=== PATIENT | female | born 1990 | race Caucasian/White ===

== ENCOUNTER → 2017-10-09 14:09 | Outpatient (CLI) | payer BC, SELFPAY ==
--- NOTE | 2017-10-09 | DI.RAD.S_ITS ---
PROCEDURE: XR LUMBAR SPINE 2-3V INDICATIONS: TAILBONE INJURY TECHNIQUE: 3 views of the lumbar spine were acquired. COMPARISON: [facility], CR, XR SACRUM COCCYX MIN 2V, 10/09/2017, 13:53. FINDINGS: Bones: 5 [id number] vertebrae are present. There is normal bony alignment. No vertebral body compression fractures. No suspicious bony lesions. Soft tissues: Overlying bowel gas pattern is normal. No suspicious soft tissue calcifications. IMPRESSION: Normal lumbar spine radiograph. Dictated by: Edmund Crawford M.D. on 10/09/2017 at 15:47 Approved by: Edmund Crawford M.D. on 10/09/2017 at 15:49
--- NOTE | 2017-10-09 | DI.RAD.S_ITS ---
PROCEDURE: XR SACRUM COCCYX MIN 2V INDICATIONS: TAILBONE INJURY TECHNIQUE: 3 views of the sacrum and coccyx acquired. COMPARISON: [facility], CR, XR LUMBAR SPINE 2-3V, 10/09/2017, 13:53. FINDINGS: Bones: No fractures or dislocations. No suspicious bony lesions. Soft tissues: Visualized bowel gas pattern is normal. No suspicious soft tissue densities. IMPRESSION: No fractures. If clinical symptoms persist or clinical suspicion for pathology is high, a repeat examination in 7-10 days is suggested for further evaluation. Dictated by: Edmund Crawford M.D. on 10/09/2017 at 15:49 Approved by: Edmund Crawford M.D. on 10/09/2017 at 15:49
== END ==
PROVIDERS: PCP Family Medicine; Visit Provider Family Medicine
DX: S39.92XA Unspecified injury of lower back, initial encounter (principal)
CPT/HCPCS: 72100; 72220

== ENCOUNTER → 2018-01-22 16:47 | Outpatient (CLI) | payer BC, SELFPAY ==
--- NOTE | 2018-01-22 | DI.MRI.S_ITS ---
PROCEDURE: MR LUMBAR SPINE WO CON INDICATIONS: POLYNEUROPATHY TECHNIQUE: Noncontrast sagittal T1 spin echo and T2 fast echo, sagittal STIR, axial T1 and T2 fast spin echo through the lumbar spine. In cases with scoliosis, additional coronal T2 fast spin echo may be performed. COMPARISON: [facility], CR, XR LUMBAR SPINE 2-3V, 10/09/2017, 13:53. FINDINGS: Image quality: Excellent. Alignment and Curvature: There is normal bony alignment. Bone Marrow: Marrow is of normal overall signal. No acute vertebral body compression fractures. Spinal Cord: Conus medullaris terminates at the L1 level. Visualized cord demonstrates normal signal and size. Paraspinous Soft Tissues: No paravertebral masses. L1-L2: Normal appearance. L2-L3: Normal appearance. L3-L4: Normal appearance. L4-L5: Normal appearance. L5-S1: Normal appearance except for mild degenerative disc height reduction and slight disc desiccation at L5-S1 where a slight posterior transverse broad-based disc bulge is present, best seen at the midline on the sagittal views, which does not produce significant spinal or foraminal stenosis. IMPRESSION: Minimal degenerative disc height reduction and disc desiccation with a small posterior broad-based midline disc bulge at L5-S1, but without associated spinal or foraminal stenosis. No mass lesion or demyelination disorder is identified. Dictated by: Patrick Matthews M.D. on 01/23/2018 at 8:14 Approved by: Patrick Matthews M.D. on 01/23/2018 at 8:15
--- NOTE | 2018-01-22 16:56 | DI.MRI.S_ITS ---
PROCEDURE: MR HEAD/BRAIN WO CON INDICATIONS: POLYNEUROPATHY TECHNIQUE: Noncontrast axial T1 spin echo, axial T2 fast spin echo, sagittal and axial FLAIR, coronal T2 fast spin echo, axial gradient echo, axial diffusion and ADC through the brain. COMPARISON: None. FINDINGS: Image quality: Excellent. CSF Spaces: Basal cisterns are patent. No extra-axial fluid collections. Ventricles are normal in size and shape. Brain: No intracranial masses or hemorrhage. Walker/white matter interface is normal. Brainstem appears normal. Diffusion-weighted images demonstrate no acute ischemic insult. No chronic ischemic insults. Normal intravascular flow voids are present. Skull and face: Calvarium has normal marrow signal. Orbits appear normal. Sinuses: Sinuses and mastoids are clear. IMPRESSION: Normal for age, source of current symptoms is not seen. Dictated by: Patrick Matthews M.D. on 01/23/2018 at 8:04 Approved by: Patrick Matthews M.D. on 01/23/2018 at 8:05
--- NOTE | 2018-01-22 16:56 | DI.MRI.S_ITS ---
PROCEDURE: MR CERVICAL SPINE WO CON INDICATIONS: POLYNEUROPATHY TECHNIQUE: Noncontrast sagittal T1 spin echo and T2 fast spin echo, sagittal STIR, foraminal oblique sagittal T2 fast spin echo, and axial gradient echo or T2 fast spin echo through the cervical spine. COMPARISON: None. FINDINGS: Image quality: Excellent. Alignment and Curvature: There is normal bony alignment. Bone Marrow: Marrow demonstrates normal overall signal. Spinal Cord: Visualized spinal cord has normal size and signal. No cerebellar tonsillar herniation. Paraspinous Soft Tissues: No paravertebral masses. Prevertebral soft tissues are normal in thickness. C2-C3: Normal appearance. C3-C4: Normal appearance. C4-C5: Normal appearance. C5-C6: Normal appearance. C6-C7: Normal appearance except for a slight degree of degenerative disc height reduction and slight posterior broad-based disc bulge which does not produce significant spinal or foraminal stenosis.. C7-T1: Normal appearance. IMPRESSION: Minimal degenerative disc disease with slight posterior transverse disc bulge at C6-7, but without appreciable spinal or foraminal stenosis. No demyelination disorder suspected. Dictated by: Patrick Matthews M.D. on 01/23/2018 at 8:06 Approved by: Patrick Matthews M.D. on 01/23/2018 at 8:08
== END ==
PROVIDERS: PCP Family Medicine; Visit Provider Family Medicine
DX: G62.9 Polyneuropathy, unspecified (principal); M51.17 Intervertebral disc disorders with radiculopathy, lumbosacral region
CPT/HCPCS: 70551; 72141; 72149

== ENCOUNTER → 2020-04-14 14:38 | Outpatient (CLI) | payer OTHER, MEDICAID, SELFPAY ==
--- NOTE | 2020-04-14 | DI.US.S_ITS ---
PROCEDURE: US PELVIC COMPLETE INDICATIONS: PAIN TECHNIQUE: Real-time scanning was performed of the pelvic organs, with image documentation. Additional endovaginal scanning was necessary due to incomplete visualization of the adnexal and endometrial structures by transabdominal scanning. COMPARISON: None. FINDINGS: Transabdominal scanning: Limited scanning through the kidneys shows no hydronephrosis. No pathologic free abdominal or pelvic fluid. Endovaginal scanning: Uterus: Uterus is normal in size at 7.4 x 4.2 x 6.7 cm. The endometrium measures 4.3 mm in combined thickness. Ovaries: Normal ovaries measuring 4.2 x 1.7 x 2.1 cm on the right and 3.9 x 2.0 x 2.3 cm on the left. No adnexal masses. IMPRESSION: No source for pelvic pain identified sonographically. Dictated by: Alexandr GALDAMEZ Interpreted: Anupam Linton MD on 04/14/2020 at 15:57 Approved by: Anupam Linton M.D. on 04/14/2020 at 16:16
== END ==
PROVIDERS: PCP Physician Assistant; Referring Provider Physician Assistant; Visit Provider Physician Assistant
DX: R10.2 Pelvic and perineal pain (principal); Z87.828 Personal history of other (healed) physical injury and trauma
CPT/HCPCS: 76830; 76856

== ENCOUNTER → 2020-10-25 19:17 | Outpatient (ROUT) | payer OTHER, MEDICAID, SELFPAY ==
[2020-10-25 19:36] LABS: Glucose 94 mg/dL (70-100)
[2020-10-25 19:52] LABS: Free T4, Direct Thyroxine 1.06 ng/dL (0.78-2.19)
[2020-10-25 20:05] LABS: Rubella Antibody IgG 94.8 IU/mL (>15)
[2020-10-25 20:06] LABS: Thyroid Stimulating Hormone 0.438 uIU/mL (0.47-4.68)
== END ==
PROVIDERS: PCP Physician Assistant; Visit Provider Obstetrics & Gynecology
DX: Z31.69 Encounter for other general counseling and advice on procreation (principal)
CPT/HCPCS: 82947; 84439; 84443; 86762; 86777

== ENCOUNTER → 2021-05-08 10:19 | Outpatient (CLI) | payer OTHER, MEDICAID, SELFPAY ==
[2021-05-10 15:23] LABS: H. Pylori Antigen Stool Negative (Negative)
== END ==
PROVIDERS: PCP Physician Assistant; Visit Provider Physician Assistant
DX: Z20.7 Contact with and (suspected) exposure to pediculosis, acariasis and other infestations (principal)
CPT/HCPCS: 87045; 87177; 87338; 87899

== ENCOUNTER → 2021-10-02 14:19 | Outpatient (CLI) | payer OTHER, MEDICAID, SELFPAY ==
[2021-10-02 15:10] LABS: COVID19 -Nasal RAPID Negative (Negative)
--- NOTE | 2021-10-02 18:39 | DI.NM.S_ITS ---
DATE OF SERVICE: PROCEDURE PERFORMED: Exercise stress test. INDICATION: Palpitation. CARDIAC STRESS: The patient underwent exercise stress test under the supervision of an attending staff. The patient walked on Sixto protocol for 12 minutes and achieved 94 percent of target heart rate and normal blood pressure response. Resting blood pressure 122/78 mmHg. Peak per peak blood pressure 148/88 mmHg. Achieved 12.8 METs of workload. Functional aerobic impairment positive 22 percent. Baseline rhythm was sinus. During stress, no convincing ischemic changes seen. The patient has intermittent premature ventricular contractions and occasional ventricular couplets without any ventricular tachycardia. The patient was symptomatic with palpitation during premature ventricular contractions . No chest pain. Had moderate shortness of breath. CONCLUSION: 1. Exercise stress test is negative for inducible ischemia. 2. Normal hemodynamic response. 3. Achieved 12.8 metabolic equivalents of workload. Intermittent premature ventricular contractions and occasional ventricular couplets during exercise. The patient was symptomatic with palpitation during exercise-induced premature ventricular contractions. No ventricular tachycardia. Angélica Harrington - ALVINO/sunita/AGA doc#: [id number]/job#: [id number] dd: 10/02/2021 17:28:00 dt: 10/02/2021 18:19:00 DICTATING MD/COPIES TO: Con Padilla MD COPIES MNE: JORGE;
== END ==
PROVIDERS: PCP Physician Assistant; Referring Provider Internal Medicine Cardiovascular Disease; Visit Provider Internal Medicine Cardiovascular Disease
DX: R94.31 Abnormal electrocardiogram [ECG] [EKG] (principal); R06.02 Shortness of breath; Z20.822 Contact with and (suspected) exposure to COVID-19
CPT/HCPCS: 87635; 93017

== ENCOUNTER → 2021-11-26 12:25 | Outpatient (CLI) | payer OTHER, MEDICAID, SELFPAY ==
--- NOTE | 2021-11-26 | DI.ECHO.S_ITS ---
[facility]+ [facility] +---------+ : : [address] : : : : [id number] : : : : Phone: [phone]+ Echocardiogram Report + + :Name: JOSSELYN BERNAL Study Date: 11/26/2021 Height: 65 in : :[facility] ReadingLocation: Weight: 120 lb : : Gender: Female BSA: 1.6 m2 : :: 1990 Age: 31 yrs BP: 128/76 mmHg: :Reason For Study: Arrhythmia : :Ordering Physician: SAYRA, : :RAUL Performed By: Damon Cuevas : :Referring: RAUL REGALADO : + + Interpretation Summary 1) Normal left ventricular thickness, size, wall motion, and systolic function (EF 55-60%). 2) Normal right ventricular size and function. 3) No significant valvular abnormalities. 4) No prior Echo available for comparison. Procedure: A two-dimensional transthoracic echocardiogram with color flow and Doppler was performed. The study quality was technically adequate. There is no prior echocardiogram noted for this patient. The patient was in normal sinus rhythm during the exam. Left Ventricle: The left ventricle is normal in size and wall thickness. Left ventricular systolic function is normal. The ejection fraction is estimated to be 55-60%. There are no focal wall motion abnormalities. Diastolic parameters suggest probable normal left ventricular diastolic function and normal filling pressures. Right Ventricle: The right ventricle is normal in size and function. Atria: Both atria are normal in size. The interatrial septum grossly appears intact with no obvious evidence for an atrial septal defect. Mitral Valve: The mitral valve is normal in structure and function. There is no mitral regurgitation noted. Aortic Valve: The aortic valve is normal in structure and function. There is no aortic valve stenosis. No aortic regurgitation is present. Tricuspid Valve: The tricuspid valve is normal in structure and function. No tricuspid regurgitation. Pulmonary artery pressures cannot be estimated because of the lack of a measurable TR jet velocity. Pulmonic Valve: The pulmonic valve is normal in structure and function. There is a trace or physiologic amount of pulmonic regurgitation. Great Vessels: The aortic root is normal size. The dimensions of the ascending aorta are normal. The IVC is of normal diameter and collapses greater than 50% with a sniff. This suggests a low right atrial pressure of 3 mm Hg. Pericardium/ Pleura There is no pericardial effusion. There is no pleural effusion. MMode/2D Measurements & Calculations LVIDd: 4.7 cm LVOT diam: 1.9 cm LVIDs: 3.1 cm Ao root diam: 2.6 cm FS: 34.0 % asc Aorta Diam: 2.8 cm IVSd: 0.80 cm LVPWd: 0.80 cm LV rojas. diameter/BSA (cm/m^2): 3.0 LV sys. diameter/BSA (cm/m^2): 1.9 LA dimension: 3.0 cm RA long axis: 4.5 cm LA A2 area: 14.9 cm2 LA A4 area: 16.8 cm2 LA length (vol): 4.9 cm LA vol: 43.7 ml LA vol index: 27.5 ml/m2 TAPSE_phl: 2.4 cm Doppler Measurements & Calculations Ao V2 max: 151.0 cm/sec LVOT Max Jefe: 129.0 cm/sec Ao V2 mean: 113.0 cm/sec LV V1 max P.7 mmHg Ao max P.0 mmHg LV V1 VTI: 26.2 cm Ao mean P.0 mmHg SONAM(I,D): 2.3 cm2 Ao V2 VTI: 31.9 cm SONAM(V,D): 2.4 cm2 sev ratio: 0.82 SONAM indexed to BSA (cm^2/m^2): 1.5 MV E max jefe: 93.0 cm/sec SV(LVOT): 74.3 ml MV A max jefe: 78.4 cm/sec MV E/A: 1.2 Med Peak E' Jefe: 11.0 cm/sec E/E' med: 8.5 Lat Peak E' Jefe: 16.5 cm/sec E/E' lat: 5.6 E/e' average: 7.0 MV dec time: 0.24 sec AV VR_phl: 0.85 MV P1/2t-pr_phl: 71.0 msec SONAM(VTI)/BSA_phl: 1.5 Reading Physician:05:32 PM
== END ==
PROVIDERS: PCP Physician Assistant; Referring Provider Internal Medicine Cardiovascular Disease; Visit Provider Internal Medicine Cardiovascular Disease
DX: I49.3 Ventricular premature depolarization (principal); I47.1 Supraventricular tachycardia; R42 Dizziness and giddiness
CPT/HCPCS: 93306

== ENCOUNTER → 2022-03-13 14:02 | Outpatient (CLI) | payer OTHER, MEDICAID, SELFPAY ==
[2022-03-13 15:41] LABS: Add Manual Diff / Slide Review NO; Basophils Absolute Auto 0 /uL (0-100); Basophils Percent Auto 0.3 % (0-2); Eosinophils Absolute Auto 0 /uL (0-450); Eosinophils Percent Auto 0.7 % (2-4); Hematocrit 39.5 % (36-46); Hemoglobin 13.6 g/dL (12.0-16.0); Lymphocytes Absolute Auto 1900 /uL (1100-4500); Lymphocytes Percent Auto 27.5 % (25-40); Mean Corpuscular HGB Conc 34.4 % (30-36); Mean Corpuscular Hemoglobin 30.4 PG (26-34); Mean Corpuscular Volume 88.2 fL (80-100); Monocytes Absolute Auto 500 /uL (0-900); Monocytes Percent Auto 6.9 % (3-14); Neutrophils Absolute Auto 4500 /uL (1500-7000); Neutrophils Percent Auto 64.6 % (50-75); Platelet Count 289 X10^3/uL (150-400); Red Blood Cell Count 4.48 X10^6/uL (4.0-5.2); Red Cell Distribution Width 12.5 % (11.6-14.8)
[2022-03-13 16:08] LABS: Alanine Aminotransferase 18 IU/L (<35); Albumin 4.3 g/dL (3.5-5.0); Albumin Globulin Ratio 1.3 (1.0-2.8); Alkaline Phosphatase 43 U/L (38-126); Aspartate Aminotransferase 20 IU/L (14-36); BUN Creatinine Ratio 11.9 (6-22); Bilirubin Total 0.3 mg/dL (0.2-1.3); Blood Urea Nitrogen 8 mg/dL (7-17); Calcium 8.9 mg/dL (8.4-10.2); Carbon Dioxide 27 mmol/L (22-32); Chloride 103 mmol/L (98-107); Estimated Glomerular Filt Rate > 60 mL/min (>60); Globulin 3.3 g/dL (1.7-4.1); Glucose 89 mg/dL (70-100); HEMOLYSIS < 15 (0-50); Potassium 3.7 mmol/L (3.4-5.1); Sodium 137 mmol/L (137-145); Total Protein 7.6 g/dL (6.3-8.2)
[2022-03-13 16:23] LABS: Free T3, Triiodothyronine Free 3.54 pg/mL (2.77-5.27); Free T4, Direct Thyroxine 1.11 ng/dL (0.78-2.19)
[2022-03-13 16:37] LABS: TSH w/ Reflex to FT4 0.78 uIU/mL (0.47-4.68)
[2022-03-14 18:08] LABS: Anti Thyroglobulin Antibody <1.0 IU/mL (0.0-0.9); Thyroid Peroxidase Antibodies <9 IU/mL (0-34)
== END ==
PROVIDERS: PCP Physician Assistant; Referring Provider Physician Assistant; Visit Provider Physician Assistant
DX: G89.29 Other chronic pain (principal); M54.41 Lumbago with sciatica, right side; M54.42 Lumbago with sciatica, left side; R79.89 Other specified abnormal findings of blood chemistry
CPT/HCPCS: 36415; 80053; 81002; 84439; 84443; 84481; 85025; 86376; 86800; 87480; 87510; 87660

== ENCOUNTER → 2023-07-07 09:49 | Outpatient (CLI) | payer OTHER, MEDICAID, SELFPAY ==
[2023-07-07 14:44] LABS: Urine N gonorrhoeae NOT DETECTED
[2023-07-07 14:45] LABS: Urine Chlamydia NOT DETECTED
== END ==
PROVIDERS: Visit Provider Obstetrics & Gynecology
DX: O99.891 Other specified diseases and conditions complicating pregnancy (principal); R79.89 Other specified abnormal findings of blood chemistry
CPT/HCPCS: 87086; 87491; 87591

== ENCOUNTER → 2023-07-07 10:02 | Outpatient (CLI) | payer OTHER, MEDICAID, SELFPAY ==
[2023-07-07 10:56] LABS: Add Manual Diff / Slide Review NO; Basophils Absolute Auto 0 /uL (0-100); Basophils Percent Auto 0.2 % (0-2); Eosinophils Absolute Auto 0 /uL (0-450); Eosinophils Percent Auto 0.4 % (2-4); Hematocrit 35.7 % (36-46); Hemoglobin 12.5 g/dL (12.0-16.0); Lymphocytes Absolute Auto 1500 /uL (1100-4500); Mean Corpuscular HGB Conc 35.1 % (30-36); Mean Corpuscular Hemoglobin 31.3 PG (26-34); Mean Corpuscular Volume 89.3 fL (80-100); Monocytes Absolute Auto 500 /uL (0-900); Neutrophils Absolute Auto 7300 /uL (1500-7000); Neutrophils Percent Auto 78.4 % (50-75); Platelet Count 251 X10^3/uL (150-400); Red Cell Distribution Width 12.9 % (11.6-14.8); White Blood Cell Count 9.4 X10^3/uL (4.5-11.0)
[2023-07-07 16:31] LABS: Hepatitis B Surface Antigen NEGATIVE s/c (NEGATIVE); Rubella Antibody IgG 87.7 IU/mL (>15)
[2023-07-07 16:46] LABS: HIV 1 & 2 Ab/Ag 4th Gen Combo NEGATIVE (NEGATIVE); Hep C Virus Ab w/Reflex Quant NEGATIVE s/c (NEGATIVE)
[2023-07-08 09:15] LABS: RPR Screen Non Reactive (Non Reactive); Varicella IgG Antibody 2608 index (Immune >165)
[2023-07-11 03:54] LABS: Free T4, Direct Thyroxine 1.29 ng/dL (0.78-2.19)
[2023-07-11 04:08] LABS: Thyroid Stimulating Hormone 0.388 uIU/mL (0.47-4.68)
== END ==
LOC: LAB 10:03
PROVIDERS: Student in an Organized Health Care Education/Training Program; Referring Provider Obstetrics & Gynecology; Visit Provider Obstetrics & Gynecology
DX: O99.891 Other specified diseases and conditions complicating pregnancy (principal); R79.89 Other specified abnormal findings of blood chemistry
CPT/HCPCS: 36415; 80055; 84439; 84443; 86787; 86803; 86850; 86900; 86901; 87086; 87389; 87491; 87591

== ENCOUNTER 2024-01-12 18:34 | Inpatient (IN) | payer OTHER, MEDICAID, SELFPAY ==
[2024-01-12 19:02] VITALS: BP 110/59
--- NOTE | 2024-01-12 19:09 | P.HPOB_ITS ---
OB HPI Date/Time Date of admission: 01/12/24 Date Patient Seen: 01/12/24 Time Patient Seen: 19:00 History of Present Condition Chief complaint: labor : 2 Para: 0 Estimated Date of Delivery: 01/24/24 Estimated Gestational Age (weeks): 38.2 Narrative: Angélica Harrington is a 33 year old female @ 38wks 2 day by LMP concordant with 7wk US presents for evaluation of labor. Contractions started last night around midnight and have slowly progressed in frequency and intensity. She is currently breathing through contractions every 5 minutes. +FM. No vaginal bleeding or leaking of fluid. Has been nauseous and vomiting today. Uncomplicated care with CNMs. 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 Desires low intervention . Accompanied by her partner, Marivel, and sister Alondra. History of Present care: good care, initiated at week # (7), number of visits (9) and pounds weight gain (40) Dating criteria: LMP confirmed by 1st trimester US Ultrasounds: normal 1st trimester US and normal mid trimester US Obstetrical complications: none Medical complications: cardiovascular (hx arrhythmia) Preadmission Labs Blood type: A (+) positive -: Antibody screen: negative, GBS status: negative, HBsAG: negative, HIV: negative and RPR/VDLR: negative -: Chlamydia screen: not detected and Gonorrhea screen: not detected -: Rubella: immune and Varicella: immune HCT: 35.5 HCAB: negative PAP: Normal Cell-free DNA: Declined 1 hr GTT: 124 Prior (ies) History: 06/2014- EAB w/ delayed PPH 2 weeks later, did not require D&C or blood transfusion Evaluation Evaluation Baseline heart rate: 135 Variability: Moderate (11-25) monitor accelerations: Present Monitor Decelerations: Absent Contraction Frequency (minutes): 5 Uterine Contraction Intensity: Moderate Status: Category l Dilation (cm): 3.5 Effacement (%): 90 Dilation: 3-4 cm Effacement: >/=80% station: -2 Position of cervix: mid Consistency: soft Pandey score: 9 PFSH Medical History HPV (human papilloma virus) anogenital infection (~2004) Foot pain Itchy anus Contusion of right foot (~05/30/17) Polyneuropathy Allergic dermatitis Exposure to parasitic disease Encounter for screening for infections with a predominantly sexual mode of transmission Encounter for other screening for malignant neoplasm of breast Encounter for screening for malignant neoplasm of cervix Travel advice encounter Surgical History Hx of colposcopy with cervical biopsy History of dilation and curettage Astor teeth extracted Family History Grandfather Heart disease Dementia Uncle Heart disease Grandfather Heart disease Mother Fibrocystic breast Thyroid disease Sister Fibrocystic breast Grandmother Fibrocystic breast Uncle Autoimmune disease Grandmother Stroke Dementia Aunt Heart disease Hx of CABG Social History marital status: unmarried,living together number of children: 1 household members: significant other lives independently: Yes caregiver/support person: No housing: house (family homestead compound w/ multiple homes) pets and animals: Yes (cats, aware of precautions) education level: college (bachelor's degree) 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, [employer]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) current occupational exposures/hazards: Yes (metal smithing hobbies) special tabitha needs: No travel history: recent (domestic only, [place] upcoming vacation) seatbelt use: always water heater temp set < 120 deg: No working smoke detector in home: No fire extinguisher in home: No carbon monox detector in home: No do you feel safe at home: Yes Smoking Status: Never smoker second hand exposure: Yes (s/o is also quitting) alcohol intake: former (~3 glasses wine/week when not ) substance use type: marijuana (not planning to use any longer, quit last year) during the past year weight has: increased > 10 lbs well-balanced diet: daily or most days daily servings fruits/ve or more times/day caffeine: Yes (decaf coffee in AM) Type(s) of exercise: walking and other (physical work) frequency: daily Meds Home Medications and Allergies Home Medications Medication Instructions Recorded Confirmed Type vitamin-ferrous sulfate tab PO 06/05/23 07/07/23 History 27 mg iron-folic acid 0.8 mg tablet Allergies Allergy/AdvReac Type Severity Reaction Status Date / Time No Known Drug Allergies Allergy Verified 01/12/24 21:31 Review of Systems Review of Systems ROS: Yes All systems reviewed with the patient and are negative except as otherwise documented OB Exam Vital signs Blood Pressure: 110/59 Pulse Rate: 96 Temperature: 97.9 F Resp Effort & Inspection: normal respiratory effort and able to speak in complete sentences Auscultation: clear to auscultation bilaterally Cardio Rate: regular rate Rhythm: regular rhythm Presentation: vertex Amniotic Fluid: other (BBOW) Objective Labs 01/12/24 19:32 Assessment and Plan Assessment and Plan Assessment and Plan narrative: A: Early term nullipara Early labor No indication for antibiotics Cat I FHR P: Admit, routine labor. May switch to intermittent auscultation. Labor support PRN. Reassess in 4 hours or sooner, PRN. Time-Based Coding :: [TOTAL MINUTES] spent with patient and on the chart (including review of chart, obtaining history, exam, reviewing outside data, placing orders, documenting exam and treatment plan, and counseling patient) on [DATE].
[2024-01-12 19:28] VITALS: BP 110/59; PULSE 96; TEMP 36.6
[2024-01-12 19:45] LABS: Add Manual Diff / Slide Review NO; Basophils Absolute Auto 0 /uL (0-100); Basophils Percent Auto 0.1 % (0-2); Eosinophils Absolute Auto 0 /uL (0-450); Hematocrit 38.6 % (36-46); Hemoglobin 13.5 g/dL (12.0-16.0); Lymphocytes Absolute Auto 800 /uL (1100-4500); Lymphocytes Percent Auto 4.5 % (25-40); Mean Corpuscular HGB Conc 34.9 % (30-36); Mean Corpuscular Hemoglobin 30.4 PG (26-34); Mean Corpuscular Volume 87.1 fL (80-100); Monocytes Absolute Auto 400 /uL (0-900); Monocytes Percent Auto 2.4 % (3-14); Neutrophils Absolute Auto 16900 /uL (1500-7000); Platelet Count 241 X10^3/uL (150-400); Red Blood Cell Count 4.43 X10^6/uL (4.0-5.2); Red Cell Distribution Width 13.2 % (11.6-14.8); White Blood Cell Count 18.2 X10^3/uL (4.5-11.0)
[2024-01-12] MEDS: CALCIUM CARBONATE 500 MG TAB 1000 MG PO (21:22)
--- NOTE | 2024-01-12 23:00 | PM.OBPNLAB ---
Date/Time Date Patient Seen: 01/12/24 Time Patient Seen: 23:00 Pain Control Pain control: tolerating well Comments: Has been laboring well with frequent position changes. Tried the tub for a while and now preferring forward leaning positions in the bed. VS: BP 120/66, HR 112, T 36.9C Temporal Pelvic Exam Dilation (cm): 6 Effacement (%): 90 station: -2 Amniotic membrane status: Intact Contractions Monitor mode: Palpation Contraction frequency (min): 3 Contraction duration (min): 1 Contraction pattern: Regular Contraction intensity: Strong/Firm Status Heart Rate Baseline: 125 Comments: reassuring by intermittent auscultation Assessment and Plan Assessment: active labor Plan: continuous present management (expectant management) Comments: Reassess in 4 hours or sooner, PRN.
[2024-01-13] MEDS: OXYTOCIN PREMIX 30 UNIT/500 ML PLAST..BAG 250 UNIT IV (01:38)
[2024-01-13] MEDS: LIDOCAINE 1% 20 ML INJ (01:57)
--- NOTE | 2024-01-13 02:28 | P.PCNOB_ITS ---
Labor & Delivery Delivery date: 01/13/24 Intrapartal Events: None Cervical ripening method: none Induction method: none Delivery monitor: external FHT Route of delivery: Episiotomy description: None L&D Laceration Description: Vaginal - 1st Degree and Labial (right labial extension of vaginal laceration) Delivery repair: chromic (3.0) Estimated blood loss (mL): 150 Anesthesia Type: None Narrative: Spontaneous labor without augmentation progressed well without anesthesia. Angélica was presumed complete with strong urge to push while sitting on the toilet. She was assisted to the shower where she knelt down and continued pushing. Rapid NSVB of a vigorous baby boy in VISHNU position. there was no nuchal cord and the shoulders delivered easily. FOB and CNM with hands on, moved the through maternal legs to her arms. Angélica was assisted to the bed for third stage. 30 units of pitocin in 500mL LR was started at 250mL/hr for AMTSL. After cessation of pulsation, the cord was double clamped by CNM and cut by FOB. Cord blood hold sample was collected. Gentle cord traction and a single maternal push led to spontaneous, Schultze delivery of an apparently intact placenta, membranes and 3VC. Fundus immediately firm and bleeding minimal. 1%lidocaine local was used for the repair of a 1st degree vaginal laceration with a right labial extension. 3.0 chromic was used for good approximation and hemostasis. EBL 150mL. both mother and baby stable and skin to skin as I left the room. [place] Baby 1: Infant gender: Female Presentation: vertex Position: Left Occiput Anterior Placenta delivery description: Spontaneous Cord Vessel Description: 3 Vessels score (1 min): 9 score (5 min): 9 weight: 3.141 kg Plan for aftercare: Routine care
[2024-01-13] MEDS: KETOROLAC 30 MG/ML VIAL IV (05:14)
[2024-01-13] MEDS: WITCH HAZEL/GLYCERIN PADS 1 EACH TOP (10:02)
[2024-01-13 11:52] LABS: Add Manual Diff / Slide Review NO; Basophils Absolute Auto 0 /uL (0-100); Basophils Percent Auto 0.2 % (0-2); Eosinophils Absolute Auto 0 /uL (0-450); Eosinophils Percent Auto 0.2 % (2-4); Hematocrit 34.7 % (36-46); Lymphocytes Absolute Auto 1600 /uL (1100-4500); Lymphocytes Percent Auto 8.5 % (25-40); Mean Corpuscular HGB Conc 34.5 % (30-36); Mean Corpuscular Hemoglobin 30.1 PG (26-34); Mean Corpuscular Volume 87.1 fL (80-100); Monocytes Absolute Auto 1200 /uL (0-900); Neutrophils Absolute Auto 16400 /uL (1500-7000); Neutrophils Percent Auto 85.1 % (50-75); Platelet Count 240 X10^3/uL (150-400); Red Blood Cell Count 3.98 X10^6/uL (4.0-5.2); White Blood Cell Count 19.3 X10^3/uL (4.5-11.0)
--- NOTE | 2024-01-13 11:58 | PM.OBDS.1 ---
Discharge Providers Provider Date of admission: 01/12/24 18:34 Discharge Date: 01/13/24 Primary care physician: Clementine Blackburn CNM Consults: 01/14/24 02:23 Consult to Director [facility] Routine Comment: Discharge provider: Clementine Blackburn CNM Summary Hospital Course Date Patient Seen: 01/13/24 Time Patient Seen: 11:58 Diagnoses: O70.0 Hospital Course: Spontaneous labor progressed rapidly without augmentation or anesthesia resulting in NSVB of a healthy baby girl. Short 1st degree vaginal laceration extending to right labis was repaired under lidocaine local. Day of delivery: 11 hrs s/p NSVB Angélica is voiding and ambulating independently. Tolerating a general diet. Pain is well controlled with PO medication. Vaginal bleeding is light without clots. Her daughter has developed tachypnea and is not well, preferring to mouth breath so Angélica has started pumping and syringe feeding colostrum. If baby is transferred for NICU care, Angélica would like to be discharged to go with her daughter. Peripartum Data Infant Delivery Method: Natural Vaginal Laceration Description: Vaginal - 1st Degree Episiotomy description: None complications: none [place] 1: Gender: Female Discharge Diagnosis (1) First degree perineal laceration during delivery: Status: Acute Status at Discharge Cognitive/behavioral status at discharge: oriented and calm Functional status at discharge: independent ambulation Overall status at discharge: patient is progressing back to baseline Time Spent with Patient Time attestation: Total time spent providing and/or coordinating discharge services: Objective Labs 01/13/24 11:45 Labs: Laboratory Results - last 24 hr 01/12/24 01/13/24 19:32 11:45 WBC 18.2 H 19.3 H RBC 4.43 3.98 L Hgb 13.5 12.0 Hct 38.6 34.7 L MCV 87.1 87.1 MCH 30.4 30.1 MCHC 34.9 34.5 RDW 13.2 13.0 Plt Count 241 240 Neut % (Auto) 93.0 H 85.1 H Lymph % (Auto) 4.5 L 8.5 L [place] % (Auto) 2.4 L 6.0 Eos % (Auto) 0.0 L 0.2 L Baso % (Auto) 0.1 0.2 Neut # (Auto) 24248 H 40760 H Lymph # (Auto) 800 L 1600 [place] # (Auto) 400 1200 H Eos # (Auto) 0 0 Baso # (Auto) 0 0 Blood Type A Positive Antibody Screen Negative Discussed elevated WBCs with OBGyn , who has not seen the patient. Reviewed hospital course and potential for early discharge. No increased concern for infection, no additional recommendations made. Exam Vital Signs (past 8 hours): BP 103/59, HR 65bpm, RR 18/min, T 98.4F temporal Other: Fundus firm @ U, lochia light, no clots. Perineum intact. Psych Appearance: grossly normal and well kempt Speech and Movement: speech and movement normal Affect: normal affect Attitude: cooperative Discharge Plan Discharge Plan Patient Disposition: Home Discharge orders & Medications Prescriptions: New ibuprofen 600 mg Tablet 600 mg PO Q6HR PRN (Reason: Pain, Mild (1-3)) 14 Days Qty: 60 0RF Continued vit-ferrous sulfat-FA 27 mg iron- 0.8 mg tablet PO Follow up/Referrals: Clementine Blackburn CNM [Primary Care Provider] - (2 week and 6 week follow-up appointments in your email) Diet/Activity/Treatments Diet: Diet as Tolerated and Regular Activity: bed rest x 2 week, no lifting >10 lbs for 4 weeks, pelvic rest x 6 weeks Skin/Wound/Dressing Care Report to your healthcare provider any signs of infection, such as:: chills, fever, increased pain, unusual drainage and unusual redness Visit Report/Discharge Packet Instructions: Depression, Sepsis Stand Alone Forms: Patient Portal/API, Stroke Signs & Symptoms Discharge Data Primary Care Provider: Clementine Blackburn
[2024-01-13] MEDS: ACETAMINOPHEN 325 MG TABLET 650 MG PO ×2 (12:01→18:01)
[2024-01-13] MEDS: IBUPROFEN 600 MG TABLET PO ×2 (15:48→17:16)
[2024-01-13 17:16] VITALS: TEMP 37
[2024-01-13 18:01] VITALS: TEMP 36.8
[2024-01-13 18:37] VITALS: BP 110/59; PULSE 96; TEMP 36.8
== END 2024-01-13 19:10 | disposition home or self-care (01) | DRG 560 ==
PROVIDERS: Admitting Provider Nurse Practitioner Obstetrics & Gynecology; PCP Nurse Practitioner Obstetrics & Gynecology; Referring Provider Nurse Practitioner Obstetrics & Gynecology; Visit Provider Nurse Practitioner Obstetrics & Gynecology
DX: O70.0 First degree perineal laceration during delivery (principal); Z3A.38 38 weeks gestation of pregnancy; Z37.0 Single live birth
CPT/HCPCS: 36415; 59050; 85025; 86850; 86900; 86901; G0379; J1885; J2590

== ENCOUNTER → 2024-07-15 11:31 | Outpatient (CLI) | payer OTHER, MEDICAID, SELFPAY ==
[2024-07-15 19:18] LABS: Add Manual Diff / Slide Review NO; Basophils Absolute Auto 0 /uL (0-100); Basophils Percent Auto 0.4 % (0-2); Eosinophils Absolute Auto 100 /uL (0-450); Hemoglobin 14.3 g/dL (12.0-16.0); Lymphocytes Absolute Auto 1600 /uL (1100-4500); Lymphocytes Percent Auto 25.4 % (25-40); Mean Corpuscular HGB Conc 34.9 % (30-36); Mean Corpuscular Hemoglobin 29.9 PG (26-34); Mean Corpuscular Volume 85.5 fL (80-100); Monocytes Absolute Auto 600 /uL (0-900); Monocytes Percent Auto 9.3 % (3-14); Neutrophils Absolute Auto 4000 /uL (1500-7000); Neutrophils Percent Auto 63.9 % (50-75); Platelet Count 257 X10^3/uL (150-400); Red Cell Distribution Width 12.7 % (11.6-14.8); White Blood Cell Count 6.3 X10^3/uL (4.5-11.0)
[2024-07-15 19:30] LABS: Alanine Aminotransferase 31 IU/L (<35); Albumin 4.7 g/dL (3.5-5.0); Albumin Globulin Ratio 1.7 (1.0-2.8); Alkaline Phosphatase 58 U/L (38-126); Aspartate Aminotransferase 27 IU/L (14-36); BUN Creatinine Ratio 16.9 (6-22); Bilirubin Total 0.4 mg/dL (0.2-1.3); Blood Urea Nitrogen 12 mg/dL (7-17); Calcium 9.9 mg/dL (8.4-10.2); Carbon Dioxide 30 mmol/L (22-32); Chloride 99 mmol/L (98-107); Estimated Glomerular Filt Rate > 60 mL/min (>60); Globulin 2.8 g/dL (1.7-4.1); Glucose 83 mg/dL (70-100); HEMOLYSIS < 15 (0-50); Potassium 4.3 mmol/L (3.4-5.1); Sodium 137 mmol/L (137-145); Total Protein 7.5 g/dL (6.3-8.2)
[2024-07-15 20:01] LABS: Thyroid Stimulating Hormone 0.226 uIU/mL (0.47-4.68)
== END ==
PROVIDERS: PCP Nurse Practitioner Obstetrics & Gynecology; Visit Provider Physician Assistant
DX: R79.89 Other specified abnormal findings of blood chemistry (principal); Z87.59 Personal history of other complications of pregnancy, childbirth and the puerperium; Z39.1 Encounter for care and examination of lactating mother; Z13.1 Encounter for screening for diabetes mellitus
CPT/HCPCS: 80053; 84443; 85025

== ENCOUNTER → 2024-07-28 13:02 | Outpatient (CLI) | payer OTHER, SELFPAY ==
[2024-07-28 19:39] LABS: Free T3, Triiodothyronine Free 4.44 pg/mL (2.77-5.27)
[2024-07-28 19:53] LABS: TSH w/ Reflex to FT4 0.12 uIU/mL (0.47-4.68)
[2024-07-28 20:24] LABS: Free T4, Direct Thyroxine 1.27 ng/dL (0.78-2.19)
[2024-07-30 07:36] LABS: Thyroid Peroxidase Antibodies 19 IU/mL (0-34)
== END ==
PROVIDERS: PCP Nurse Practitioner Obstetrics & Gynecology; Visit Provider Physician Assistant
DX: R79.89 Other specified abnormal findings of blood chemistry (principal)
CPT/HCPCS: 84439; 84443; 84481; 86376

== ENCOUNTER → 2024-08-06 11:32 | Outpatient (CLI) | payer OTHER, SELFPAY ==
--- NOTE | 2024-08-06 | DI.US.S_ITS ---
PROCEDURE: US THYROID INDICATIONS: HYPERTHYROID TECHNIQUE: Real-time scanning was performed of the thyroid gland, with image documentation. COMPARISON: None. FINDINGS: Thyroid: Right lobe measures 5.7 x 1.5 x 1.5 cm. Left lobe measures 5.3 x 0.8 x 1.6 cm. Isthmus is 0.3 cm thick. Echotexture is relatively homogeneous. There is a 6 mm left thyroid nodule that does not meet size criteria for further evaluation. IMPRESSION: Mild thyromegaly. Small solitary nodule, measuring 0.6 cm. Please refer to the definitive shins and recommendations below. By imaging characteristics, this nodule is not a category 5 nodule. No further evaluation of this nodule is recommended. ACR TI-RADS definitions and recommendations: TI-RADS 1 (benign): 0 points. FNA not needed. TI-RADS 2 (not suspicious): 2 points. FNA not needed. TI-RADS 3: 3 points. * FNA if 2.5 cm or larger, follow up if 1.5 cm or larger (at 1, 3, and 5 years). TI-RADS 4: 4-6 points. * FNA if 1.5 cm or larger, follow up if 1 cm or larger (at 1, 2, 3, and 5 years). TI-RADS 5: 7 points or more. * FNA if 1 cm or larger, follow up if 0.5 cm or larger (every year for 5 years). Dictated by: Apollo Rush M.D. on 08/06/2024 at 13:18 Approved by: Apollo Rush M.D. on 08/06/2024 at 13:22
== END ==
LOC: US 11:35
PROVIDERS: PCP Nurse Practitioner Obstetrics & Gynecology; Referring Provider Physician Assistant; Visit Provider Physician Assistant
DX: E04.1 Nontoxic single thyroid nodule (principal); R79.89 Other specified abnormal findings of blood chemistry
CPT/HCPCS: 76536